=== PATIENT | female | born 1955 | race Caucasian/White ===

== ENCOUNTER 2018-07-21 10:17 | Emergency (ER) | payer MEDICAID ==
[~2018-07-21] VITALS: Ht 167.6 cm; Wt 70.3 kg
[2018-07-21 10:43] VITALS: BP 127/70
--- NOTE | 2018-07-21 10:48 | NUR ---
PT AMB TO LOBBY, VSS.
--- NOTE | 2018-07-21 11:02 | NUR ---
PT AMBULATED TO ER BED 09
--- NOTE | 2018-07-21 11:12 | NUR ---
PT. ARRIVED TO THE ED W/ C/O SEVERE ABDOMINAL PAIN THAT STARTED LAST NIGHT. PT REPORTS THAT SHE HAS STAGE 4 COLORECTAL CANCER, HAS NOT SEEN ONCOLOGIST, HAS OSTOMY NO REDNESS NOTED AROUND SITE, MOIST STOMA.PT. STATES " I AM IN A LOT OF PAIN AND THE [place]COS ARENT HELPING ME ANYMORE, I ONLY POOPED A LITTLE BIT TODAY SO I FEEL IM NOT HAVING ENOUGH STOOL IN THE LAST 2 DAYS". 8/10 MEDIAL ABD PAIN THAT IS DULL AND THROBBING. PT . DENIES ANY N/V/D. DENIES ANY FEVERS OR CHILLS. RR EVEN AND UNLABORED. SAFETY PRECAUTIONS IMPLEMENTED. WILL CONTINUE TO MONITOR. ER MD MADE AWARE HX: COLORECTAL CANCER, ARTHRITIS, DEPRESSION, CHRONIC PAIN
--- NOTE | 2018-07-21 11:40 | NUR ---
RESIDENT AT BEDSIDE AT THIS TIME. VSS. WILL CONTINUE TO MONITOR.
[2018-07-21] MEDS ORDERED: KETOROLAC 60 MG/2 ML VIAL IM ONE (12:10)
--- NOTE | 2018-07-21 12:17 | NUR ---
PT. AMBULATED TO RESTROOM WITH STEADY GAIT, NO FACIAL GRIMACING NOTED AT THIS TIME. WILL CONTINUE TO MONITOR.
[2018-07-21 12:36] VITALS: BP 138/86
--- NOTE | 2018-07-21 12:36 | NUR ---
Patient discharged with v/s stable. Written and verbal after care instructions given and explained. Patient alert, oriented and verbalized understanding of instructions. Ambulatory with steady gait. All questions addressed prior to discharge. ID band removed. Patient advised to follow up with PMD. Rx of MIRALAX 17G, NAPROSYN 250MG, given. Patient educated on indication of medication including possible reaction and side effects. Opportunity to ask questions provided and answered.
== END 2018-07-21 12:36 | disposition home or self-care (01) ==
LOC: MED 10:17
DX: G89.29 Other chronic pain (principal); T40.605A Adverse effect of unspecified narcotics, initial encounter; K59.03 Drug induced constipation; F17.200 Nicotine dependence, unspecified, uncomplicated; Z85.038 Personal history of other malignant neoplasm of large intestine; Y92.89 Other specified places as the place of occurrence of the external cause
CPT/HCPCS: 96372; 99283; J1885

== ENCOUNTER 2019-08-21 09:59 | Emergency (ER) | payer MEDICAID ==
[~2019-08-21] VITALS: Ht 167.6 cm; Wt 70.8 kg
[2019-08-21 10:06] VITALS: BP 131/81
--- NOTE | 2019-08-21 10:07 | NUR ---
63 Y/O FEMALE PRESENTS TO THE ER WITH DYSURIA X 3 DAYS. PT HAS 6/10 PAIN. C/O FREQUENCY, PRESSURE, AND URGENCY. DENIES FEVER, CHILLS, BLOOD, BUT STATES SHE SEES BROWN WHEN SHE URINATES. " I DO HAVE STAGE 4 TERMINAL COLON, RECTAL, AND LIVER CANCER, AND I HAVE A POOP BAG". R/R EQUAL, AND UNLABORED, SIDERAIL X2, BED AT LOWEST POINT. WILL CONTINUE TO MONITOR NKDA PMH: MENTAL DISORDER, ANEMIA
--- NOTE | 2019-08-21 10:46 | NUR ---
PT RESTING IN BED QUIETLY. SIDERAIL X2, WILL CONTINUE TO MONITOR
--- NOTE | 2019-08-21 11:25 | NUR ---
ERMD AT BEDSIDE
--- NOTE | 2019-08-21 11:40 | NUR ---
Patient discharged with v/s stable. Written and verbal after care instructions given and explained. Patient alert, oriented and verbalized understanding of instructions. Ambulatory with steady gait. All questions addressed prior to discharge. ID band removed. Patient advised to follow up with PMD. Rx of PYRIDIUM, CIRPO given. Patient educated on indication of medication including possible reaction and side effects. Opportunity to ask questions provided and answered.
== END 2019-08-21 11:40 | disposition home or self-care (01) ==
LOC: MED 09:59
DX: N39.0 Urinary tract infection, site not specified (principal); F12.90 Cannabis use, unspecified, uncomplicated; Z98.890 Other specified postprocedural states; Z85.038 Personal history of other malignant neoplasm of large intestine; Z85.05 Personal history of malignant neoplasm of liver; Z85.048 Personal history of other malignant neoplasm of rectum, rectosigmoid junction, and anus
CPT/HCPCS: 81002; 99283

== ENCOUNTER 2020-04-03 23:10 | Emergency (ER) | payer MEDICAID ==
[~2020-04-03] VITALS: Ht 167.6 cm; Wt 63.5 kg
[2020-04-03 23:16] VITALS: BP 147/101
[2020-04-03] MEDS ORDERED: MORPHINE SULFATE 4 MG/ML SYR IVP ONE (23:30)
[2020-04-03 23:44] LABS: BASOPHILS % (AUTO) 0.4 % (0.0-2.0); EOSINOPHILS # (AUTO) 0.1 K/uL (0-0.4); EOSINOPHILS % (AUTO) 0.7 % (0.0-4.0); HEMOGLOBIN 13.8 g/dL (12.0-16.0); LYMPHOCYTES # (AUTO) 2.8 K/uL (2.5-16.5); LYMPHOCYTES % (AUTO) 27.4 % (20.5-51.1); MEAN CORPUSCULAR HEMOGLOBIN 34 pg (27-31); MEAN CORPUSCULAR HGB CONC 35 g/dL (33-37); MEAN CORPUSCULAR VOLUME 97.6 fL (80-94); MONOCYTES # (AUTO) 0.6 K/uL (0.8-1.0); MONOCYTES % (AUTO) 5.9 % (1.7-9.3); NEUTROPHILS # (AUTO) 6.8 K/uL (1.8-7.7); NEUTROPHILS % (AUTO) 65.6 % (42.2-75.2); PLATELET COUNT (AUTO) 382 K/uL (140-450); RED CELL DISTRIBUTION WIDTH 16.8 % (11.6-13.7); WHITE BLOOD COUNT (AUTO) 10.4 K/uL (4.8-10.8)
[2020-04-03 23:57] LABS: ALBUMIN 3.6 g/dL (3.4-5.0); ANION GAP 14.5 (8-16); CARBON DIOXIDE 23.5 mmol/L (21-32); CREATININE 0.8 mg/dL (0.6-1.3)
[2020-04-04] MEDS ORDERED: MORPHINE SULFATE 4 MG/ML SYR IVP ONE (01:10)
[2020-04-04 01:46] VITALS: BP 144/97
== END 2020-04-04 01:46 | disposition home or self-care (01) ==
LOC: MED 23:10
DX: R10.84 Generalized abdominal pain (principal); F32.9 Major depressive disorder, single episode, unspecified; F12.90 Cannabis use, unspecified, uncomplicated; Z85.038 Personal history of other malignant neoplasm of large intestine; Z85.048 Personal history of other malignant neoplasm of rectum, rectosigmoid junction, and anus; Z85.05 Personal history of malignant neoplasm of liver; Z98.890 Other specified postprocedural states
CPT/HCPCS: 36415; 74176; 80053; 81002; 83690; 85025; 96374; 96376; 99284; J2270

== ENCOUNTER 2020-05-03 11:58 | Emergency (ER) | payer MEDICAID ==
[~2020-05-03] VITALS: Ht 167.6 cm; Wt 63.5 kg
--- NOTE | 2020-05-03 11:58 | NUR ---
Patient BIBA BLS, transferred to bed 7. RN evaluating patient at bedside.
[2020-05-03 12:06] VITALS: BP 133/91
--- NOTE | 2020-05-03 12:12 | NUR ---
Pt biba from home c/o blood in ostomy bag, states she passed "hard mass" after not having BM for the past 4 days and had approx 2 cups bright red blood noted in the ostomy bag. AAOX4; LUNGS CLEAR BL; HR EVEN AND REGULAR; PT DENIES ANY FEVER, CP, SOB, OR COUGH AT THIS TIME; PATIENT STATES PAIN OF 10/10 AT THIS TIME; VSS; PATIENT POSITIONED FOR COMFORT; HOB ELEVATED; BEDRAILS UP X2; BED DOWN. ER MD MADE AWARE OF PT STATUS.
[2020-05-03] MEDS ORDERED: MORPHINE SULFATE 4 MG/ML SYR IVP ONE (12:30)
--- NOTE | 2020-05-03 12:36 | NUR ---
Dr. Trejo is evaluating the patient at bedside.
[2020-05-03] MEDS ORDERED: ONDANSETRON 4 MG/2 ML VIAL IVP ONE (12:50)
--- NOTE | 2020-05-03 13:11 | NUR ---
RIGHT SUPRACLAVICULAR HUONG CATH ACCESSED. BLOOD WITHDRAW POSITIVE. 20 ML SALINE FLUSHED EASILY. BLOOD SPECIMEN ANDRÉS FROM HUONG CATH. 4 MG MORPHINE IVP AND 4MG ZOFRAN WERE GIVEN VIA RIGHT SUPRACLAVICULAR HUONG CATH AND SALINE LOCK AFTERWARD.
--- NOTE | 2020-05-03 13:11 | NUR ---
Taras trammell in EDM - 05/03/20 at 1313 by MED RIGHT SUPRACLAVICAL HUONG CATH ACCESSED. BLOOD WITHDRAW POSITIVE. 20 ML SALINE FLUSHED EASILY. BLOOD SPECIMEN ANDRÉS FROM HUONG CATH. 2MG MORPHINE IVP AND 4MG ZOFRAN WERE GIVEN VIA RIGHT SUPRACLAVICAL HUONG CATH AND SALINE LOCK AFTERWARD.
--- NOTE | 2020-05-03 13:11 | NUR ---
Note jp in EDM - 05/03/20 at 1355 by MED RIGHT SUPRACLAVICULAR HUONG CATH ACCESSED. BLOOD WITHDRAW POSITIVE. 20 ML SALINE FLUSHED EASILY. BLOOD SPECIMEN ANDRÉS FROM HUONG CATH. 2MG MORPHINE IVP AND 4MG ZOFRAN WERE GIVEN VIA RIGHT SUPRACLAVICULAR HUONG CATH AND SALINE LOCK AFTERWARD.
[2020-05-03 13:14] LABS: BASOPHILS % (AUTO) 0.3 % (0.0-2.0); EOSINOPHILS % (AUTO) 0.3 % (0.0-4.0); HEMATOCRIT 39.4 % (36-48); LYMPHOCYTES % (AUTO) 18.5 % (20.5-51.1); MEAN CORPUSCULAR HEMOGLOBIN 33 pg (27-31); MEAN CORPUSCULAR HGB CONC 33 g/dL (33-37); MEAN CORPUSCULAR VOLUME 100.3 fL (80-94); MONOCYTES # (AUTO) 0.6 K/uL (0.8-1.0); MONOCYTES % (AUTO) 5.1 % (1.7-9.3); NEUTROPHILS # (AUTO) 8.2 K/uL (1.8-7.7); NEUTROPHILS % (AUTO) 75.8 % (42.2-75.2); PLATELET COUNT (AUTO) 299 K/uL (140-450); RED BLOOD CELL COUNT(AUTO) 3.93 MIL/uL (4.20-5.40); RED CELL DISTRIBUTION WIDTH 14.4 % (11.6-13.7); WHITE BLOOD COUNT (AUTO) 10.8 K/uL (4.8-10.8)
--- NOTE | 2020-05-03 13:41 | NUR ---
Lactic acid 2.2--critical value received from lab. Dr Trejo made aware
[2020-05-03 13:44] LABS: ALBUMIN 3.4 g/dL (3.4-5.0); CARBON DIOXIDE 25.1 mmol/L (21-32); CREATININE 0.7 mg/dL (0.6-1.3); POTASSIUM 4.1 mmol/L (3.5-5.1); TOTAL BILIRUBIN 1.5 mg/dL (0.0-1.0)
--- NOTE | 2020-05-03 14:10 | NUR ---
LUNCH PROVIDED TO PT TO BEDSIDE.
[2020-05-03 14:46] VITALS: BP 140/100
--- NOTE | 2020-05-03 14:46 | NUR ---
Patient discharged with v/s stable. Written and verbal after care instructions given and explained. Patient alert, oriented and verbalized understanding of instructions. Ambulatory with steady gait. All questions addressed prior to discharge. ID band removed. Patient advised to follow up with PMD. Rx of Oxycodone given. Patient educated on indication of medication including possible reaction and side effects. Opportunity to ask questions provided and answered.
== END 2020-05-03 14:46 | disposition home or self-care (01) ==
LOC: MED 11:58
DX: C20 Malignant neoplasm of rectum (principal); K62.5 Hemorrhage of anus and rectum; Z85.038 Personal history of other malignant neoplasm of large intestine; Z85.05 Personal history of malignant neoplasm of liver; Z85.048 Personal history of other malignant neoplasm of rectum, rectosigmoid junction, and anus; Z85.3 Personal history of malignant neoplasm of breast
CPT/HCPCS: 36415; 80053; 83605; 83690; 85025; 96374; 96375; 99284; J2270; J2405